=== PATIENT | male | born 1950 | race Caucasian/White ===

== ENCOUNTER → 2018-01-10 | Emergency (ER) | payer OTHER ==
[~2018-01-10] VITALS: Ht 170.2 cm; Wt 90.7 kg
[~2018-01-10] MED LIST: LOSARTAN-HCTZ1 EAC1
== END | disposition home or self-care (01) ==
LOC: ER 16:44
DX: I16.0 Hypertensive urgency (principal)

== ENCOUNTER → 2018-03-20 | Emergency (ER) | payer OTHER ==
[~2018-03-20] VITALS: Ht 180.3 cm; Wt 81.6 kg
== END | disposition home or self-care (01) ==
LOC: ER 10:46
DX: J06.9 Acute upper respiratory infection, unspecified (principal); I95.9 Hypotension, unspecified